=== PATIENT | female | born 2000 | race Caucasian/White ===

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

== ENCOUNTER → 2022-05-09 11:35 | Outpatient (BNVA) | payer OTHER, SELFPAY | PROVIDERS: Visit Provider Internal Medicine | DX: T15.91XA Foreign body on external eye, part unspecified, right eye, initial encounter (principal); T15.92XA Foreign body on external eye, part unspecified, left eye, initial encounter | CPT/HCPCS: 92002; 99202 ==

== ENCOUNTER 2022-05-31 20:14 | Emergency (ER) | payer OTHER, SELFPAY ==
[2022-05-31 20:22] VITALS: BP 122/79; PULSE 86; RESP 16; TEMP 36.2; O2SAT 95; BMI 36.8
--- NOTE | 2022-05-31 20:48 | ED_ITS ---
HPI - Psych General Chief Complaint: Psychiatric Symptoms Stated Complaint: crisis Time Seen by Provider: 05/31/22 20:34 Source: patient Mode of arrival: ambulatory Limitations: no limitations History of Present Illness HPI Narrative: 21 yo female ppmhx of adhd, anxiety, depression, bipolar disorder, autism spectrum disorder presents to the emergency department today with SI with a plan. Patient took 16 sleep well gummies at 1530 today. 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 Patient has been suicidal in the past, last year which resulted in outpatient therapy. Currently followed by a psychiatrist and counselor, is on multiple psychiatric medications. Denies A/V/T hallucinations. Denies tobacco, drugs, or alcohol at the time. Lives with her mother in a home. Has never been hospitalized before for psychiatric complaints. Denies fevers, chills, headache, visual changes, weakness, dizziness, nausea, vomiting, diarrhea, numbness or tingling of extremities. Denies HI at this time. Related Data Home Medications Medication Instructions Recorded Confirmed cariprazine 1.5 mg capsule 1 cap PO DAILY 05/31/22 05/31/22 (Vraylar) dextroamphetamine-amphetamine ER 1 cap PO QAM 05/31/22 05/31/22 15 mg 24hr capsule,extend release (Adderall XR) norethindrone 0.5 mg-ethinyl 1 tab PO DAILY 05/31/22 05/31/22 estradiol 35 mcg tablet (Nortrel) norethindrone 0.5 mg-ethinyl 1 tab PO DAILY 05/31/22 05/31/22 estradiol 35 mcg tablet (Nortrel) omeprazole 20 mg capsule,delayed 1 cap PO DAILY 05/31/22 05/31/22 release Allergies Allergy/AdvReac Type Severity Reaction Status Date / Time No Known Allergies Allergy Verified 10/23/20 19:55 Review of Systems Review of Systems: Constitutional : No Weight loss, No Fever, No Chills, No Fatigue, No Malaise ENT/Mouth : No sore throat, No Rhinorrhea Eyes: No Eye Pain, No Swelling, No Redness Cardiovascular : No Chest Pain, No SOB, No Dyspnea on Exertion, No Orthopnea, No Edema, No Palpitations Respiratory : No Cough, No Sputum, No Wheezing Gastrointestinal : No Nausea, No Vomiting, No Diarrhea, No Constipation, No abdominal Pain, No Hematochezia, No Melena Genitourinary : No Dysuria, No Urinary Frequency, No Hematuria, Musculoskeletal : No joint pain, No Myalgias, No Joint Swelling Skin : No Skin Lesions, No rash Neuro : No Weakness, No Numbness, No Dizziness, No Headache Psych : + Anxiety/Panic, + Depression, +SI, -HI, -A/T/V hallucinations All other systems reviewed and are negative PMFSH Past Medical History Attestation statement: The following information was validated with the patient. Source: old records reviewed and nursing notes reviewed Medical History (Updated 05/31/22 @ 21:45 by LEIA Lopez) ADHD Anxiety Autism Bipolar disorder Depression Social History Social History Alcohol intake: never Advance Directives: No Advance Directives Information Provided: No Physical Exam Vital Signs: Vital Signs: Last Vital Signs Temp 97.1 F 05/31/22 20:22 Pulse 86 05/31/22 20:22 Resp 16 05/31/22 20:22 BP 122/79 05/31/22 20:22 Pulse Ox 95 05/31/22 20:22 O2 Del Method 05/31/22 20:22 BMI result Body Mass Index 36.8 vss Appearance: Alert.? Oriented X3.? No acute distress.? Head: Normocephalic, atraumatic, no step-offs or deformities Eyes: Pupils equal, round and reactive to light.? CVS: Normal heart rate and rhythm.? Pulses normal.? Respiratory: No respiratory distress.? Breath sounds normal.? Abdomen: Soft and nontender.? Skin: Skin warm and dry.? Normal skin color.? Normal skin turgor.? Extremities: No lower extremity edema.? No calf ttp. 5/5 strength to bilateral upper and lower extremities Back: No midline tenderness, no C-spine tenderness, full range of motion, no CVA tenderness bilaterally Neuro: Oriented X 3.? No motor deficit.? No sensory deficit. CN 2-12 intact Course Reevaluation(s) Reevaluation #1: CBC appears to be within normal limits. Chemistry no acute electrolyte abnormalities requiring intervention. Toxicology positive for amphetamines, taking aderall as rx. Salicylates acetaminophen negative. Flu/COVID/RSV negative. Ethanol pending. At this time patient will be placed into observation to allow more time to be placed in inpatient psychiatric facility. Patient was evaluated in the community by [facility]. At time observation was started patient patient common cooperative no acute distress stable vitals will continue to monitor Time: 21:44 Medical Decision Making Medical Decision Making MDM Narrative: 2048 21 yo female presents to the emergency dept. with SI with a plan, took 16 sleep well gummies at 1530 today. No medical complaints at this time. Vital signs stable. PE benign. Plan is medical clearance and then psychiatric evaluation. Critical Care Time Critical Care Time Critical Care Time: No Discharge Plan Discharge Clinical Impression: Suicidal ideation, Depression Patient Disposition: Still a Patient Prescriptions: No Action omeprazole 20 mg capsule,delayed release(DR/EC) 1 cap PO DAILY Nortrel 0.5/35 (28) 0.5-35 mg-mcg tablet 1 tab PO DAILY Nortrel 0.5/35 (28) 0.5-35 mg-mcg tablet 1 tab PO DAILY dextroamphetamine-amphetamine [Adderall XR] 15 mg capsule,extended release 24hr 1 cap PO QAM Vraylar 1.5 mg capsule 1 cap PO DAILY
[2022-05-31 20:58] LABS: MANUAL DIFF FLAG NO
[2022-05-31 20:59] LABS: Basophils Absolute Auto 0.1 X10*3/uL (0.0-0.2); Basophils Percent Auto 0.7 % (0-2); Eosinophils Absolute Auto 0.3 X10*3/uL (0.0-0.4); Eosinophils Percent Auto 2.7 % (0-4); Hematocrit 40.5 % (37.0-47.0); Hemoglobin 12.9 g/dl (12.0-16.0); Imm Gran Abs Auto 0.03 X10*3/uL (0.00-0.03); Imm Gran Pct Auto 0.3 % (0.0-0.4); Lymphocytes Absolute Auto 2.4 X10*3/uL (1.2-4.9); Lymphocytes Percent Auto 23.3 % (20-40); Mean Corpuscular HGB Conc 31.9 g/dl (31.0-35.0); Mean Corpuscular Hemoglobin 27.6 pg (27.0-33.0); Mean Corpuscular Volume 86.5 fL (80.0-98.0); Mean Platelet Volume 10.5 fL (9.4-12.3); Monocytes Absolute Auto 0.8 X10*3/uL (0.1-1.2); Monocytes Percent Auto 7.7 % (2-11); Neutrophils Absolute Auto 6.8 x10*3/uL (2.0-8.3); Neutrophils Percent Auto 65.3 % (45-73); Platelet Count 359 X10*3/uL (160-400); Red Blood Count 4.68 X10*6/uL (4.20-5.50); Red Cell Distribution Width 13.2 % (11.0-16.0); White Blood Count 10.4 X10*3/uL (4.8-10.8)
[2022-05-31 21:01] LABS: Amphetamine Screen Urine POSITIVE (Not Detect); Barbiturates, Urine Not Detected (Not Detect); Benzodiazepines Screen Urine Not Detected (Not Detect); Cannabinoid Screen Urine Not Detected (Not Detect); Cocaine Screen Urine Not Detected (Not Detect); Fentanyl, urine Not Detected (Not Detect); Opiate Screen Urine Not Detected (Not Detect); Phencyclidine Screen Urine Not Detected (Not Detect)
[2022-05-31 21:18] LABS: Acetaminophen LAB < 1 mcg/mL (<30); Salicylate < 5.0 mg/dL (15-30)
[2022-05-31 21:19] LABS: Alanine Aminotransferase 20 U/L (0-31); Albumin Level 3.7 g/dL (3.5-5.0); Alkaline Phosphatase 97 U/L (39-117); Anion Gap 15 (12-20); Aspartate Amino Transferase 15 U/L (5-31); Blood Urea Nitrogen 13 mg/dL (9-16); Calcium 9.3 mg/dL (8.4-10.2); Carbon Dioxide 23 mmol/L (22-29); Chloride 105 mmol/L (96-108); Creatinine Clr Calc Pharmacy 143.3; Estimated Glomerular Filt Rate > 60; Glucose Random 94 mg/dL (60-115); Potassium 4.4 mmol/L (3.3-5.1); Sodium 139 mmol/L (135-145)
[2022-05-31 21:27] LABS: Influenza A PCR NEGATIVE (Negative); Influenza B PCR NEGATIVE (Negative); Resp Syncy Virus RNA Qual PCR NEGATIVE (Negative); SARS COV2 PCR INHOUSE NEGATIVE (Negative)
[2022-05-31 22:09] LABS: Ethanol < 10 mg/dL
[2022-05-31 23:16] VITALS: BP 125/72; PULSE 70; RESP 17; TEMP 36.7; O2SAT 100
[2022-05-31 23:18] LABS: Bilirubin Total 0.2 mg/dL (0.0-1.0)
[2022-06-01] MEDS: diphenhydrAMINE HCL 25 MG CAPSULE 50 MG PO (02:04)
--- NOTE | 2022-06-01 06:03 | PC.NURSE ---
Patient slept through the night, no distress observed/reported, med rec completed/pending provider's approval, patient was assessed by [facility] in the community with disposition section 12 inpatient bed search, VSS, will continue to monitor.
[2022-06-01 07:50] VITALS: BP 123/78; PULSE 89; RESP 18; TEMP 36.8; O2SAT 98
[2022-06-01] MEDS: Dextroamphetamine/Amphetamine XR 5 MG CAP.ER.24H 15 MG PO (10:05)
[2022-06-01] MEDS: FLUoxetine HCl 20 MG CAPSULE PO (10:05)
--- NOTE | 2022-06-01 11:01 | PC.NURSE ---
Still awaiting Naz from Pharmacy. No med at this time.
--- NOTE | 2022-06-01 12:16 | PC.NURSE ---
Per pt: when mom calls for status update, report that pt is sleeping and will call back when awake. Pt had distressing phone call with mother at approximately 12pm. Per pt she keeps yelling at me about filing unemployment and calling my boyfriend first. She says I need my phone. rules of pod and phone policy educated to patient. Pt verbalized understanding. Due to distressing nature of phone call, emotional support and non-pharmacological management of anxiety offered.
[2022-06-01] MEDS: Ibuprofen 600 MG TABLET PO (13:37)
[2022-06-01 14:00] VITALS: RESP 16
--- NOTE | 2022-06-01 15:17 | PC.NURSE ---
Per N: Okay to d/c to follow up with outpatient respite services and is safe to wait in Waiting room.
== END 2022-06-01 15:42 | disposition home or self-care (01) ==
PROVIDERS: Physician Assistant; Emergency Provider Emergency Medicine Emergency Medical Services
DX: R45.851 Suicidal ideations (principal); F31.9 Bipolar disorder, unspecified; F41.9 Anxiety disorder, unspecified; F84.0 Autistic disorder; Z79.899 Other long term (current) drug therapy; Z20.822 Contact with and (suspected) exposure to COVID-19
CPT/HCPCS: 0241U; 36415; 80053; 80143; 80179; 80307; 82077; 85025; 99285

== ENCOUNTER 2023-09-23 10:04 | Inpatient (IN) | payer OTHER, SELFPAY ==
--- NOTE | 2023-09-23 10:17 | ED.GENADULT ---
HPI - General Adult General Chief complaint: Psychiatric Symptoms Stated complaint: CRISIS EVAL,THOUGHTS TO DRINK LYSOL PER EMS Time Seen by Provider: 09/23/23 10:16 Source: patient and EMS Mode of arrival: EMS Limitations: no limitations History of Present Illness HPI narrative: Patient is a 23 year old assigned female at with a history of ADHD, anxiety, bipolar disorder, depression, and autism presenting to the emergency department today with suicidal ideation. Patient states that she has felt suicidal lately. Patient denies any dizziness, lightheadedness, abdominal pain, nausea, vomiting, fever, chills, blurry vision, double vision, loss of vision, chest pain, difficulty breathing, shortness of breath, back pain, night sweats, pain with urination, increased urinary frequency, increased urinary urgency, blood in her urine or stool, syncope or a near syncopal episode, recent trauma or falls, bowel incontinence, bladder incontinence, bowel retention, bladder retention, or any other complaints at this time. Relieving factors: none Exacerbating factors: none Associated symptoms: denies other symptoms Treatments prior to arrival: none Related Data Home Medications Medication Instructions Recorded Confirmed escitalopram oxalate 10 mg tablet 5 mg PO DAILY 09/23/23 09/23/23 hydroxyzine HCl 25 mg tablet 25 mg PO BEDTIME PRN anxiety 09/23/23 09/23/23 Allergies Allergy/AdvReac Type Severity Reaction Status Date / Time No Known Allergies Allergy Verified 10/23/20 19:55 Review of Systems Constitutional: Constitutional: Reports no additional constitutional complaints, Denies chills, Denies fever(s) and Denies night sweats Eyes: Eyes: Reports no additional eye complaints, Denies blurry vision, Denies change in vision, Denies diplopia, Denies eye discharge, Denies loss of vision and Denies eye pain ENT: Denies dizziness Cardiovascular: Cardiovascular: Reports no additional cardiovascular complaints, Denies chest pain, Denies lightheadedness, Denies Loss of Consciousness and Denies dyspnea Respiratory: Respiratory: Reports no additional respiratory complaints and Denies dyspnea Gastrointestinal: Gastrointestinal: Reports no additional gastrointestinal complaints, Denies abdominal pain, Denies melena, Denies hematochezia, Denies change in bowel habits and Denies change in stool character Genitourinary: Genitourinary: Denies hematuria, Denies urinary frequency, Denies dysuria, Denies urinary incontinence, Denies urinary hesitancy and Denies urinary urgency Musculoskeletal: Musculoskeletal: Reports no additional musculoskeletal complaints, Denies numbness and Denies tingling Neurologic: Denies dizziness, Denies loss of vision, Denies numbness and Denies tingling Psychiatric: Psychiatric: Denies homicidal ideation and Reports suicidal ideation Endocrine: Endocrine: Reports no additional endocrine complaints Hematologic/Lymphatic: Hematologic/Lymphatic: Reports no additional hematologic/lymphatic complaints Allergic/Immunologic: Allergic/Immunologic: Reports no additional allergic/immunologic complaints [facility] Past Medical History Attestation statement: The following information was validated with the patient. Source: old records reviewed and nursing notes reviewed Medical History Autism Depression Bipolar disorder Anxiety ADHD Social History Social History Alcohol intake: unknown Smoked in Last 30 Days: No Use of substances other than those prescribed or required for medical reasons: No Advance Directives: No Physical Exam ED Vital Signs: Vital Signs - 24 hr 09/23/23 10:18 09/23/23 10:26 09/23/23 14:20 Temperature 98.1 F 98.1 F 97.9 F Pulse Rate 74 78 84 Respiratory Rate 18 20 16 Blood Pressure 108/57 L 108/57 L 130/78 Pulse Oximetry 98 98 97 Oxygen Delivery Method Room Air Room Air Room Air BMI result Body Mass Index 30.9 Const General: cooperative, no acute distress, alert and awake Nutritional Appearance: well nourished Orientation/consciousness: patient oriented x3 Limitations: no limitations [facility] Head: Yes normal to inspection and Yes atraumatic Ears: hearing grossly normal bilaterally and external ears normal General nose exam: Normal external nose present, no nasal discharge noted and no epistaxis Face and sinus: Yes normal facial exam, No abrasion and No laceration Mouth: Normal oral and palatal mucosa present, no drooling and no muffled voice Eyes General: appearance normal, both eyes and all related structures Periorbital: periorbital findings normal Eyelids: Yes eyelids normal Conjunctivae: conjunctivae normal Pupils: Equal, round and reactive pupils present EOM: EOMs intact bilaterally Neck Neck: Yes normal visual inspection, Yes full ROM and Yes no lymphadenopathy Chest Chest palpation & inspection: normal inspection of the chest Resp Effort & Inspection: normal respiratory effort and able to speak in complete sentences GI Inspection: Yes normal to inspection Neuro General: patient oriented x3 and moves all extremities Cranial nerves: Yes Equal, round and reactive pupils present Cognition (Neuro): normal cognition Motor exam (neuro): 5/5 motor strength present throughout Sensory Exam: Normal double simultaneous stimulation for sensation Coordination: [id number] test normal Extrem General: Yes normal to inspection, Yes full ROM and Yes capillary refill normal Psych Appearance: grossly normal Mental Status: mental status grossly normal Affect: Sad affect present Attitude: Guarded attititude/behavior present Thought content: Suicidality present Medical Decision Making Medical Decision Making MDM Narrative: Patient is a 23 year old assigned female at with a history of ADHD, anxiety, bipolar disorder, depression, and autism presenting to the emergency department today with suicidal ideation. Patient's physical exam was as noted in the physical exam portion of this note. Patient's blood work was unremarkable. Patient's urine showed no acute process. I explained my physical exam findings as well as all test results to the patient. I answered all questions asked by the patient. Patient's disposition pending CARE team evaluation. Differential Diagnosis Differential Diagnoses: The differential diagnosis associated with the presentation includes Suicidal ideation Depression Admission/Observation Consideration of admission/observation: Escalation of care including admission/observation considered Patient's disposition pending CARE team evaluation. Lab Data [facility] Lab Attestation statement: I reviewed the patient's lab results. My interpretation of these results are in the MDM Rationale portion of this note. 09/23/23 10:43 09/23/23 10:43 Labs: Lab Results 09/23/23 09/23/23 Range/Units 10:42 10:43 WBC 8.1 (4.8-10.8) X10*3/uL RBC 4.73 (4.20-5.50) X10*6/uL Hgb 13.8 (12.0-16.0) g/dl Hct 41.6 (37.0-47.0) % MCV 87.9 (80.0-98.0) fL MCH 29.2 (27.0-33.0) pg MCHC 33.2 (31.0-35.0) g/dl RDW 13.0 (11.0-16.0) % Plt Count 289 (160-400) X10*3/uL MPV 11.0 (9.4-12.3) fL Immature Gran % (Auto) 0.2 (0.0-0.4) % Neut % (Auto) 71.4 (45-73) % Lymph % (Auto) 20.7 (20-40) % [place] % (Auto) 6.8 (2-11) % Eos % (Auto) 0.2 (0-4) % Baso % (Auto) 0.7 (0-2) % Lymph # (Auto) 1.7 (1.2-4.9) X10*3/uL [place] # (Auto) 0.6 (0.1-1.2) X10*3/uL Eos # (Auto) 0.0 (0.0-0.4) X10*3/uL Baso # (Auto) 0.1 (0.0-0.2) X10*3/uL Abs Immat Gran (auto) 0.02 (0.00-0.03) X10*3/uL Absolute Neuts (auto) 5.8 (2.0-8.3) x10*3/uL Absolute Nucleated RBC 0.000 (0.0-0.012) X10*3/uL Nucleated RBC % (auto) 0.0 (0.0-0.2) /100WBC Sodium 141 (135-145) mmol/L Potassium 4.2 (3.3-5.1) mmol/L Chloride 107 (96-108) mmol/L Carbon Dioxide 26 (22-29) mmol/L Anion Gap 12 (12-20) BUN 15 (9-16) mg/dL Creatinine 0.75 (0.5-1.4) mg/dL Estim Creat Clear Calc 121.6 Estimated GFR > 60 Random Glucose 100 (60-115) mg/dL Calcium 9.8 (8.4-10.2) mg/dL Total Bilirubin 0.5 (0.0-1.0) mg/dL AST 14 (5-31) U/L ALT 13 (0-31) U/L Alkaline Phosphatase 101 (39-117) U/L Total Protein 7.7 (6.5-8.0) g/dL Albumin 4.2 (3.5-5.0) g/dL Urine Color Yellow Urine Appearance Clear Urine pH 5.5 (5.0-9.0) Ur Specific [place] 1.025 (1.005-1.025) Urine Protein Negative (Neg-Trace) mg/dL Urine Glucose (UA) Negative (Negative) mg/dL Urine Ketones 40 (Negative) mg/dL Urine Blood Negative (Negative) Urine Nitrite Negative (Negative) Ur Leukocyte Esterase Negative (Negative) Urine Test NEGATIVE (NEGATIVE) Salicylates < 5.0 L (15-30) mg/dL Urine Opiates Screen Not Detected (Not Detect) Urine Fentanyl Screen Not Detected (Not Detect) Acetaminophen < 3 (<30) mcg/mL Ur Barbiturates Screen Not Detected (Not Detect) Ur Phencyclidine Scrn Not Detected (Not Detect) Ur Amphetamines Screen Not Detected (Not Detect) U Benzodiazepines Scrn Not Detected (Not Detect) Urine Cocaine Screen Not Detected (Not Detect) U Marijuana (THC) Screen Not Detected (Not Detect) Ethyl Alcohol < 10 mg/dL COVID-19 (LILA) Negative (Negative) COVID-19 Clin Com See Note Independent Historian Clinical information obtained from an independent historian. History obtained from or confirmed by: EMS (EMS provided additional history and confirmed the history provided by the patient.) Discharge Plan Discharge Clinical Impression: Suicidal ideation Patient Disposition: Still a Patient Prescriptions: No Action hydroxyzine HCl 25 mg tablet 25 mg PO BEDTIME PRN (Reason: anxiety) escitalopram oxalate 10 mg tablet 5 mg PO DAILY Interventions: Gray-Suicide Risk Severity Scale Last Done: 09/23/23 10:23
[2023-09-23 10:18] VITALS: BP 108/57; BP 112/78; PULSE 73; PULSE 74; RESP 18; TEMP 36.7; O2SAT 98; BMI 30.9
[2023-09-23 10:26] VITALS: BP 108/57; PULSE 78; RESP 20; TEMP 36.7; O2SAT 98
[2023-09-23 11:00] LABS: MANUAL DIFF FLAG NO
[2023-09-23 11:01] LABS: Basophils Absolute Auto 0.1 X10*3/uL (0.0-0.2); Basophils Percent Auto 0.7 % (0-2); Eosinophils Percent Auto 0.2 % (0-4); Hematocrit 41.6 % (37.0-47.0); Hemoglobin 13.8 g/dl (12.0-16.0); Imm Gran Abs Auto 0.02 X10*3/uL (0.00-0.03); Imm Gran Pct Auto 0.2 % (0.0-0.4); Lymphocytes Absolute Auto 1.7 X10*3/uL (1.2-4.9); Lymphocytes Percent Auto 20.7 % (20-40); Mean Corpuscular HGB Conc 33.2 g/dl (31.0-35.0); Mean Corpuscular Hemoglobin 29.2 pg (27.0-33.0); Mean Corpuscular Volume 87.9 fL (80.0-98.0); Monocytes Absolute Auto 0.6 X10*3/uL (0.1-1.2); Monocytes Percent Auto 6.8 % (2-11); Neutrophils Absolute Auto 5.8 x10*3/uL (2.0-8.3); Neutrophils Percent Auto 71.4 % (45-73); Platelet Count 289 X10*3/uL (160-400); Red Blood Count 4.73 X10*6/uL (4.20-5.50); White Blood Count 8.1 X10*3/uL (4.8-10.8)
[2023-09-23 11:10] LABS: Appearance Urine Clear; Color Urine Yellow; Glucose Urine UA Negative (Negative); Leukocyte Esterase Urine Negative (Negative); Nitrite Urine Negative (Negative); PH 5.5 (5.0-9.0); Specific Gravity - Urine 1.025 (1.005-1.025); Urine Blood Negative (Negative); Urine Ketones 40 mg/dL (Negative); Urine Protein Negative (Neg-Trace)
[2023-09-23 11:12] LABS: Amphetamine Screen Urine Not Detected (Not Detect); Barbiturates, Urine Not Detected (Not Detect); Benzodiazepines Screen Urine Not Detected (Not Detect); Cannabinoid Screen Urine Not Detected (Not Detect); Cocaine Screen Urine Not Detected (Not Detect); Fentanyl, urine Not Detected (Not Detect); Opiate Screen Urine Not Detected (Not Detect); Phencyclidine Screen Urine Not Detected (Not Detect); UPreg QC Valid YES; Urine Pregnancy NEGATIVE (NEGATIVE)
[2023-09-23 11:22] LABS: COVID-19 Test Negative (Negative); IDNOW Serial# 08D9AD1C
[2023-09-23 11:26] LABS: Acetaminophen LAB < 3 mcg/mL (<30); Salicylate < 5.0 mg/dL (15-30)
[2023-09-23 11:26] LABS: Alanine Aminotransferase 13 U/L (0-31); Albumin Level 4.2 g/dL (3.5-5.0); Alkaline Phosphatase 101 U/L (39-117); Anion Gap 12 (12-20); Aspartate Amino Transferase 14 U/L (5-31); Bilirubin Total 0.5 mg/dL (0.0-1.0); Blood Urea Nitrogen 15 mg/dL (9-16); Calcium 9.8 mg/dL (8.4-10.2); Carbon Dioxide 26 mmol/L (22-29); Chloride 107 mmol/L (96-108); Creatinine Clr Calc Pharmacy 121.6; Estimated Glomerular Filt Rate > 60; Ethanol < 10 mg/dL; Glucose Random 100 mg/dL (60-115); Potassium 4.2 mmol/L (3.3-5.1); Sodium 141 mmol/L (135-145); Total Protein 7.7 g/dL (6.5-8.0)
[2023-09-23 14:20] VITALS: BP 130/78; PULSE 84; RESP 16; TEMP 36.6; O2SAT 97
[2023-09-23 16:24] VITALS: BP 107/60; PULSE 67; RESP 16; TEMP 37.2; O2SAT 100; BMI 32.9
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
[2023-09-23 20:30] VITALS: BP 115/60; PULSE 60; RESP 16; TEMP 36.8; O2SAT 100
[2023-09-24] MEDS: diphenhydrAMINE HCL 25 MG CAPSULE 50 MG PO (02:04)
[2023-09-24 06:00] VITALS: BP 112/53; PULSE 82; RESP 14; TEMP 36.9; O2SAT 99
[2023-09-24 07:00] VITALS: BMI 32.8
[2023-09-24] MEDS: Escitalopram Oxalate 5 MG TABLET PO (08:21)
[2023-09-24 09:06] LABS: Estimated Average Glucose 100 mg/dL; Hemoglobin A1c % 5.1 % (<6.0)
[2023-09-24 09:23] LABS: Cholesterol 152 mg/dL (<200); HDL Cholesterol 53 mg/dL (>40); LDL Cholesterol Calculated 87 mg/dL (<100); Triglycerides 62 mg/dL (<150)
[2023-09-24 09:38] LABS: Free T4 (Free Thyroxine) 0.87 ng/dL (0.71-1.85); Thyroid Stimulating Hormone 1.36 uIU/mL (0.32-4.0)
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
[2023-09-24 09:51] LABS: Folate 7.5 ng/mL (> or = 4.0); Vitamin B12 1023 pg/mL (200-900)
[2023-09-24 20:35] VITALS: BP 123/59; PULSE 60; RESP 15; TEMP 36.9; O2SAT 99
[2023-09-24] MEDS: risperiDONE 1 MG TABLET PO (21:05)
[2023-09-25 06:00] VITALS: BP 107/72; PULSE 74; RESP 14; TEMP 36.7; O2SAT 99
[2023-09-25] MEDS: risperiDONE 0.5 MG TABLET PO (11:48)
[2023-09-25] MEDS: Escitalopram Oxalate 5 MG TABLET PO (11:48)
--- NOTE | 2023-09-25 15:25 | HO.PSYCHPN ---
Subjective Subjective Date of Service: 09/25/23 Reason For Visit: SI Interim History: calm, cooperative. remains slowed, perhaps less so than yesterday. a bit more spontaneous and faster to respond. no incidents of asking MD to repeat questions today. encouraged to take medications, which she did last night but refused this morning. per staff, high dep/anx. taking meds. attending groups. denies SI/HI/AVH. later denied dep/anx. Mental Status Exam Mental Status Exam Narrative: calm, cooperative, disheveled. no PMA/PMR. speech sparse, appears to be on the cusp of speaking repeatedly and then halts herself. nml loudness, decr rate. thoughts linear when able to answer quickly. affect constricted, hypo-intense, non-labile. mood anxious. no SI/SIBI/HI/AVH expressed. Diagnostics Vital Signs (24Hr): Vital Signs - 24 hr 09/24/23 20:35 09/25/23 06:00 Temperature 98.5 F 98.1 F Pulse Rate 60 74 Respiratory Rate 15 14 Blood Pressure 123/59 L 107/72 Pulse Oximetry 99 99 Oxygen Delivery Method Room Air Room Air BMI result Body Mass Index 32.8 Labs 09/23/23 10:43 09/23/23 10:43 Labs: Laboratory Results - last 48 hr 09/24/23 08:28 Estimat Average Glucose 100 Hemoglobin A1c % 5.1 Triglycerides 62 Cholesterol 152 LDL Cholesterol, Calc 87 HDL Cholesterol 53 Vitamin B12 1023 H Folate 7.5 TSH 1.36 Free T4 0.87 Medications Medications Current Medications Acetaminophen (Acetaminophen 325 Mg Tablet) 650 mg PO Q6H PRN PRN Reason: Headache/Pain Mild Scale (1-3) Al Hydroxide/Mg Hydroxide (Magnesium Hydrox/Alum Hydrox 30 Ml Oral.Susp) 30 ml PO Q6H PRN PRN Reason: Heartburn/Nausea Escitalopram Oxalate (Escitalopram Oxalate 5 Mg Tablet) 5 mg PO DAILY [facility] Last Admin: 09/25/23 11:48 Dose: 5 mg Hydroxyzine HCl (Hydroxyzine Hcl 25 Mg Tablet) 25 mg PO BEDTIME PRN PRN Reason: anxiety Hydroxyzine HCl (Hydroxyzine Hcl 25 Mg Tablet) 25 mg PO Q6H PRN PRN Reason: Anxiety Magnesium Hydroxide (Milk Of Magnesia 30 Ml Oral.Susp) 30 ml PO DAILY PRN PRN Reason: Constipation Nicotine Polacrilex (Nicotine Polacrilex 2 Mg Gum) 2 mg BUCCAL Q2H PRN PRN Reason: Nicotine Cravings Risperidone (Risperidone 0.5 Mg Tablet) 0.5 mg PO DAILY [facility] Last Admin: 09/25/23 11:48 Dose: 0.5 mg Risperidone (Risperidone 1 Mg Tablet) 1 mg PO BEDTIME [facility] Last Admin: 09/24/23 21:05 Dose: 1 mg Trazodone HCl (Trazodone Hcl 50 Mg Tablet) 50 mg PO BEDTIME MRX1 PRN PRN Reason: Insomnia Allergies Allergies Allergy/AdvReac Type Severity Reaction Status Date / Time goat milk Allergy Hives Uncoded 09/23/23 15:53 Assessment & Plan Assessment & Plan (1) Thought disorder: Status: Acute Code(s): R41.89 - Other symptoms and signs involving cognitive functions and awareness (2) Autism: Status: Acute Code(s): F84.0 - Autistic disorder Plan 09/23: start risperidone 0.5/1 in attempt to slow and organize thoughts. unclear if barbara or psychosis, leaning toward psychosis. 4/5: partial medication compliance. appears moderately improved today after having had 1 mg risperidone last night. continue current mgmt, encourage medication compliance. Reason for continued inpatient stay Substantial Risk for: harm to self, inability to function and rapid decompensation Time Spent With Patient Time: Total time managing care of this patient today __35__ minutes.
--- NOTE | 2023-09-25 22:25 | PC.NURSE ---
not accepting HS medications at this time. sat with patient for 1/2 hour reviewing medications, talking about use, having patient review packaging. thought blocking and resistive. not agitated but apprehensive.
[2023-09-25 22:27] VITALS: RESP 16
[2023-09-25] MEDS: risperiDONE 1 MG TABLET PO (22:40)
[2023-09-25 22:50] VITALS: BP 120/62; PULSE 78; RESP 16; TEMP 36.6; O2SAT 96
[2023-09-26 07:25] VITALS: BP 130/75; PULSE 59; RESP 16; TEMP 37.3; O2SAT 96
[2023-09-26] MEDS: Escitalopram Oxalate 5 MG TABLET PO (08:41)
[2023-09-26] MEDS: Ondansetron ODT 4 MG TAB.RAPDIS TRANSLINGU (11:05)
--- NOTE | 2023-09-26 11:32 | HO.PSYCHPN ---
Subjective Subjective Date of Service: 09/26/23 Reason For Visit: SI Subjective Notes: Conditional Voluntary Interim History: met with patient. Discussed with Nursing. Very reluctant to engage with junior technical writer. Did appear either internally preoccupied or thought blocking. Withdrawn. Reported wanting to wait after the weekend to speak with her main team. Also made contradictory statement, stating she did not like working with her primary team, but was unsure what she wanted to speak with junior technical writer about and if she felt comfortable doing this. Medication Compliance: Yes Side effects from medications: No Attending Groups: No Review of Systems Acute medical concerns: No Review of Systems Review of Systems Yes Unobtainable due to mental status Mental Status Exam Mental Status Exam Narrative: calm, cooperative, disheveled. no PMA/PMR. speech sparse, appears to be on the cusp of speaking repeatedly and then halts herself. nml loudness, decr rate. thoughts linear when able to answer quickly. affect constricted, hypo-intense, non-labile. mood anxious. no SI/SIBI/HI/AVH expressed. Diagnostics Vital Signs (24Hr): Vital Signs - 24 hr 09/25/23 22:27 09/25/23 22:50 09/26/23 07:25 Temperature 97.8 F 99.1 F Pulse Rate 78 59 Respiratory Rate 16 16 16 Blood Pressure 120/62 130/75 Pulse Oximetry 96 96 Oxygen Delivery Method Room Air Room Air BMI result Body Mass Index 32.8 Labs 09/23/23 10:43 09/23/23 10:43 Medications Medications Current Medications Acetaminophen (Acetaminophen 325 Mg Tablet) 650 mg PO Q6H PRN PRN Reason: Headache/Pain Mild Scale (1-3) Al Hydroxide/Mg Hydroxide (Magnesium Hydrox/Alum Hydrox 30 Ml Oral.Susp) 30 ml PO Q6H PRN PRN Reason: Heartburn/Nausea Escitalopram Oxalate (Escitalopram Oxalate 5 Mg Tablet) 5 mg PO DAILY [facility] Last Admin: 09/26/23 08:41 Dose: 5 mg Hydroxyzine HCl (Hydroxyzine Hcl 25 Mg Tablet) 25 mg PO BEDTIME PRN PRN Reason: anxiety Hydroxyzine HCl (Hydroxyzine Hcl 25 Mg Tablet) 25 mg PO Q6H PRN PRN Reason: Anxiety Magnesium Hydroxide (Milk Of Magnesia 30 Ml Oral.Susp) 30 ml PO DAILY PRN PRN Reason: Constipation Nicotine Polacrilex (Nicotine Polacrilex 2 Mg Gum) 2 mg BUCCAL Q2H PRN PRN Reason: Nicotine Cravings Ondansetron HCl (Ondansetron Odt 4 Mg Tab.Rapdis) 4 mg TRANSLINGU Q4H PRN PRN Reason: Nausea Last Admin: 09/26/23 11:05 Dose: 4 mg Risperidone (Risperidone 0.5 Mg Tablet) 0.5 mg PO DAILY [facility] Last Admin: 09/26/23 08:42 Dose: Not Given Risperidone (Risperidone 1 Mg Tablet) 1 mg PO BEDTIME [facility] Last Admin: 09/25/23 22:40 Dose: 1 mg Trazodone HCl (Trazodone Hcl 50 Mg Tablet) 50 mg PO BEDTIME MRX1 PRN PRN Reason: Insomnia Allergies Allergies Allergy/AdvReac Type Severity Reaction Status Date / Time goat milk Allergy Hives Uncoded 09/23/23 15:53 Assessment & Plan Assessment & Plan (1) Thought disorder: Status: Acute Code(s): R41.89 - Other symptoms and signs involving cognitive functions and awareness (2) Autism: Status: Acute Code(s): F84.0 - Autistic disorder Plan 4: start risperidone 0.5/1 in attempt to slow and organize thoughts. unclear if barbara or psychosis, leaning toward psychosis. /5: partial medication compliance. appears moderately improved today after having had 1 mg risperidone last night. continue current mgmt, encourage medication compliance. 4/6: no changes Reason for continued inpatient stay Substantial Risk for: inability to function Time Spent With Patient Time: Total time managing care of this patient today ____ minutes.
[2023-09-26 20:00] VITALS: RESP 18
[2023-09-27 08:00] VITALS: BP 116/60; PULSE 90; RESP 16; TEMP 37.1; O2SAT 96
--- NOTE | 2023-09-27 12:07 | HO.PSYCHPN ---
Subjective Subjective Date of Service: 09/27/23 Reason For Visit: SI Subjective Notes: Stark Warning and 3 Day Interim History: Met with patient. Discussed with Nursing. Signed a Three day notice. Stark warning discussed. Patient states that she now wants to be discharged and does not need psychiatric services, medications or care anymore and feels that she is able to advocate for herself and therefore wants discharge. Has been declining medications. Remains internally preoccupied or thought blocking. Withdrawn. Medication Compliance: No Side effects from medications: No Attending Groups: Intermittent Review of Systems Acute medical concerns: No Review of Systems Review of Systems Nothing acute Mental Status Exam Mental Status Exam Narrative: calm, cooperative, disheveled. no PMA/PMR. speech increased in volume and organization. nml loudness, decr rate. thoughts linear when able to answer quickly. affect constricted, hypo-intense, non-labile. mood anxious. no SI/SIBI/HI/AVH expressed. Diagnostics Vital Signs (24Hr): Vital Signs - 24 hr 09/26/23 20:00 09/27/23 08:00 Temperature 98.7 F Pulse Rate 90 Respiratory Rate 18 16 Blood Pressure 116/60 Pulse Oximetry 96 Oxygen Delivery Method Room Air BMI result Body Mass Index 32.8 Labs 09/23/23 10:43 09/23/23 10:43 Medications Medications Current Medications Acetaminophen (Acetaminophen 325 Mg Tablet) 650 mg PO Q6H PRN PRN Reason: Headache/Pain Mild Scale (1-3) Al Hydroxide/Mg Hydroxide (Magnesium Hydrox/Alum Hydrox 30 Ml Oral.Susp) 30 ml PO Q6H PRN PRN Reason: Heartburn/Nausea Escitalopram Oxalate (Escitalopram Oxalate 5 Mg Tablet) 5 mg PO DAILY MARIANNE Last Admin: 09/27/23 09:24 Dose: Not Given Hydroxyzine HCl (Hydroxyzine Hcl 25 Mg Tablet) 25 mg PO BEDTIME PRN PRN Reason: anxiety Hydroxyzine HCl (Hydroxyzine Hcl 25 Mg Tablet) 25 mg PO Q6H PRN PRN Reason: Anxiety Magnesium Hydroxide (Milk Of Magnesia 30 Ml Oral.Susp) 30 ml PO DAILY PRN PRN Reason: Constipation Nicotine Polacrilex (Nicotine Polacrilex 2 Mg Gum) 2 mg BUCCAL Q2H PRN PRN Reason: Nicotine Cravings Ondansetron HCl (Ondansetron Odt 4 Mg Tab.Rapdis) 4 mg TRANSLINGU Q4H PRN PRN Reason: Nausea Last Admin: 09/26/23 11:05 Dose: 4 mg Risperidone (Risperidone 0.5 Mg Tablet) 0.5 mg PO DAILY MARIANNE Last Admin: 09/27/23 09:23 Dose: Not Given Risperidone (Risperidone 1 Mg Tablet) 1 mg PO BEDTIME MARIANNE Last Admin: 09/26/23 20:50 Dose: Not Given Trazodone HCl (Trazodone Hcl 50 Mg Tablet) 50 mg PO BEDTIME MRX1 PRN PRN Reason: Insomnia Allergies Allergies Allergy/AdvReac Type Severity Reaction Status Date / Time goat milk Allergy Hives Uncoded 09/23/23 15:53 Assessment & Plan Assessment & Plan (1) Thought disorder: Status: Acute Code(s): R41.89 - Other symptoms and signs involving cognitive functions and awareness (2) Autism: Status: Acute Code(s): F84.0 - Autistic disorder Plan 09/23: start risperidone 0.5/1 in attempt to slow and organize thoughts. unclear if barbara or psychosis, leaning toward psychosis. 4/5: partial medication compliance. appears moderately improved today after having had 1 mg risperidone last night. continue current mgmt, encourage medication compliance. 4/6: no changes /7: no changes Reason for continued inpatient stay Substantial Risk for: inability to function Time Spent With Patient Time: Total time managing care of this patient today ____ minutes.
[2023-09-27 18:00] VITALS: BP 109/58; PULSE 74; RESP 20; TEMP 37.2; O2SAT 97
[2023-09-27] MEDS: risperiDONE 1 MG TABLET PO (21:43)
[2023-09-28 06:00] VITALS: BP 119/55; PULSE 91; RESP 14; TEMP 36.9; O2SAT 97
[2023-09-28 12:25] VITALS: BP 120/70; PULSE 87; RESP 16; TEMP 36.9; O2SAT 97
[2023-09-28] MEDS: risperiDONE 1 MG TABLET PO ×2 (12:36→20:17)
--- NOTE | 2023-09-28 16:27 | P.PNPSI_ITS ---
Subjective Subjective Date of Service: 09/28/23 Reason For Visit: SI Interim History: calm, cooperative. continues as similar to admission, perhaps slight improvement in response time. MD repeatedly encouraged patient to take medications as it appeared she had only taken them once over the weekend. per staff, 3-day up weds. refused meds all w/e aside from HS dose last night. repeatedly asking for belongings list. slept 7+ hours. Mental Status Exam Mental Status Exam Narrative: calm, cooperative, disheveled. no PMA/PMR. speech sparse, appears to be on the cusp of speaking repeatedly and then halts herself. nml loudness, decr rate. thoughts linear when able to answer quickly. affect constricted, hypo-intense, non-labile. mood anxious. no SI/SIBI/HI/AVH expressed. Diagnostics Vital Signs (24Hr): Vital Signs - 24 hr 09/27/23 18:00 09/28/23 06:00 09/28/23 12:25 Temperature 98.9 F 98.5 F 98.5 F Pulse Rate 74 91 87 Respiratory Rate 20 14 16 Blood Pressure 109/58 L 119/55 L 120/70 Pulse Oximetry 97 97 97 Oxygen Delivery Method Room Air Room Air Room Air BMI result Body Mass Index 32.8 Labs 09/23/23 10:43 09/23/23 10:43 Medications Medications Current Medications Acetaminophen (Acetaminophen 325 Mg Tablet) 650 mg PO Q6H PRN PRN Reason: Headache/Pain Mild Scale (1-3) Al Hydroxide/Mg Hydroxide (Magnesium Hydrox/Alum Hydrox 30 Ml Oral.Susp) 30 ml PO Q6H PRN PRN Reason: Heartburn/Nausea Escitalopram Oxalate (Escitalopram Oxalate 5 Mg Tablet) 5 mg PO DAILY ON LICENSE OF [facility] Last Admin: 09/28/23 09:18 Dose: Not Given Hydroxyzine HCl (Hydroxyzine Hcl 25 Mg Tablet) 25 mg PO BEDTIME PRN PRN Reason: anxiety Hydroxyzine HCl (Hydroxyzine Hcl 25 Mg Tablet) 25 mg PO Q6H PRN PRN Reason: Anxiety Magnesium Hydroxide (Milk Of Magnesia 30 Ml Oral.Susp) 30 ml PO DAILY PRN PRN Reason: Constipation Nicotine Polacrilex (Nicotine Polacrilex 2 Mg Gum) 2 mg BUCCAL Q2H PRN PRN Reason: Nicotine Cravings Ondansetron HCl (Ondansetron Odt 4 Mg Tab.Rapdis) 4 mg TRANSLINGU Q4H PRN PRN Reason: Nausea Last Admin: 09/26/23 11:05 Dose: 4 mg Risperidone (Risperidone 0.5 Mg Tablet) 0.5 mg PO DAILY ON LICENSE OF [facility] Last Admin: 09/28/23 09:18 Dose: Not Given Risperidone (Risperidone 1 Mg Tablet) 1 mg PO BEDTIME MARIANNE Last Admin: 09/27/23 21:43 Dose: 1 mg Trazodone HCl (Trazodone Hcl 50 Mg Tablet) 50 mg PO BEDTIME MRX1 PRN PRN Reason: Insomnia Allergies Allergies Allergy/AdvReac Type Severity Reaction Status Date / Time goat milk Allergy Hives Uncoded 09/23/23 15:53 Assessment & Plan Assessment & Plan (1) Thought disorder: Status: Acute Code(s): R41.89 - Other symptoms and signs involving cognitive functions and awareness (2) Autism: Status: Acute Code(s): F84.0 - Autistic disorder Plan 09/23: start risperidone 0.5/1 in attempt to slow and organize thoughts. unclear if barbara or psychosis, leaning toward psychosis. 4/5: partial medication compliance. appears moderately improved today after having had 1 mg risperidone last night. continue current mgmt, encourage medication compliance. /6: no changes 09/26: no changes 09/27: refused meds all w/e aside from last night. no change from thursday. MD strongly encouraged pt to take medication. 3-day notice up , planning for wed D/C. Reason for continued inpatient stay Substantial Risk for: inability to function and rapid decompensation Time Spent With Patient Time: Total time managing care of this patient today __35__ minutes.
[2023-09-28 19:30] VITALS: RESP 18
[2023-09-29 06:00] VITALS: BP 109/71; PULSE 86; RESP 16; TEMP 36.9; O2SAT 97
[2023-09-29] MEDS: Escitalopram Oxalate 5 MG TABLET PO (08:39)
[2023-09-29] MEDS: risperiDONE 0.5 MG TABLET PO (08:39)
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
[2023-09-29 20:00] VITALS: BP 127/76; PULSE 77; RESP 16; TEMP 36.9; O2SAT 99
[2023-09-29] MEDS: risperiDONE 1 MG TABLET PO (21:16)
[2023-09-30 06:00] VITALS: BP 113/62; PULSE 83; RESP 16; TEMP 36.9; O2SAT 98
[2023-09-30] MEDS: risperiDONE 0.5 MG TABLET PO (08:32)
[2023-09-30] MEDS: Escitalopram Oxalate 5 MG TABLET PO (08:32)
== END 2023-09-30 11:42 | disposition home or self-care (01) | DRG 757 ==
LOC: HO.ED 15:18 → HO.PADLT16 15:29
PROVIDERS: Physician Assistant Medical; Admitting Provider Psychiatry & Neurology Psychiatry; Emergency Provider Emergency Medicine; Visit Provider Psychiatry & Neurology Psychiatry
DX: F84.8 Other pervasive developmental disorders (principal); R45.851 Suicidal ideations; F41.9 Anxiety disorder, unspecified; F84.0 Autistic disorder; F90.9 Attention-deficit hyperactivity disorder, unspecified type; Z20.822 Contact with and (suspected) exposure to COVID-19; Z79.899 Other long term (current) drug therapy
CPT/HCPCS: 36415; 80053; 80061; 80143; 80179; 80307; 81003; 81025; 82607; 82746; 83036; 84439; 84443; 85025; 87635; 90686; 99285

== ENCOUNTER → 2023-09-23 14:59 | Outpatient (BNV) | payer OTHER, SELFPAY | PROVIDERS: Admitting Provider Psychiatry & Neurology Psychiatry; Emergency Provider Emergency Medicine; Visit Provider Psychiatry & Neurology Psychiatry | DX: F84.0 Autistic disorder (principal); R41.89 Other symptoms and signs involving cognitive functions and awareness | CPT/HCPCS: 90792; 99231; 99232; 99239 ==

== ENCOUNTER 2024-09-30 23:24 | Emergency (ER) | payer OTHER, SELFPAY ==
[2024-09-30 23:31] VITALS: BP 115/71; PULSE 91; RESP 16; TEMP 36.8; O2SAT 98; BMI 42.0
--- NOTE | 2024-10-01 00:04 | ED_ITS ---
HPI - Female Genitourinary General Chief complaint: Urogenital-Female Stated complaint: vaginal rash Time Seen by Provider: 09/30/24 23:43 Source: patient, RN notes reviewed and old records reviewed Mode of arrival: ambulatory Limitations: no limitations History of Present Illness ED Provider: Divine JEFFERSON Narrative: 24-year-old female past medical history significant for ADHD, anxiety, bipolar disorder, depression, autism spectrum disorder presents for evaluation of a rash. patient describes an itchy rash in her groin that she noticed this afternoon. she describes the skin as leathery. she reports that her boyfriend has had a similar rash for several years the patient is not concerned about sexually transmitted infection because I am the only partner he has ever had. Patient denies any vaginal bleeding or discharge. Denies any burning with urination denies any new soaps, lotions, detergents Related Data Home Medications ?Medication ?Instructions ?Recorded ?Confirmed hydroxyzine HCl 25 mg tablet 25 mg PO BEDTIME PRN anxiety 09/23/23 09/23/23 Previous Rx's ?Medication ?Instructions ?Recorded escitalopram oxalate 10 mg tablet 5 mg (1/2 x 10 mg) PO DAILY 30 09/29/23 days #15 tabs risperidone 0.5 mg tablet 0.5 mg PO DAILY 30 days #30 tabs 09/29/23 risperidone 1 mg tablet 1 mg PO BEDTIME 30 days #30 tabs 09/29/23 hydrocortisone 2.5 % topical cream 1 appl topical BID rash 1 week #30 10/01/24 grams Allergies Allergy/AdvReac Type Severity Reaction Status Date / Time amoxicillin Allergy Rash Verified 09/30/24 23:34 goat milk Allergy Hives Uncoded 09/30/24 23:34 Review of Systems Constitutional: Constitutional: Denies body ache(s), Denies chills, Denies fever(s) and Denies frequent falls Eyes: Eyes: Denies blurry vision Cardiovascular: Cardiovascular: Denies chest pain and Denies dyspnea Respiratory: Respiratory: Denies cough and Denies dyspnea Gastrointestinal: Gastrointestinal: Denies abdominal pain, Denies nausea and Denies vomiting Musculoskeletal: Musculoskeletal: Denies back pain Integumentary/Breasts: Skin/Breast: Reports rash Neurologic: Denies frequent falls PMFSH Past Medical History Medical History Autism Depression Bipolar disorder Anxiety ADHD Social History Social History Household Members: Family Housing: Apartment Do you presently have visiting nurse or other home services: No Alcohol intake: unknown Patient Tobacco Use Status: Never used Tobacco Advance Directives: No Advance Directives Information Provided: Yes Do you have a plan to hurt others: No Plan service: No Sexual orientation: Don't Know Physical Exam Vital Signs: Vital Signs: Last Vital Signs Temp 98.2 F 09/30/24 23:31 Pulse 91 09/30/24 23:31 Resp 16 09/30/24 23:31 BP 115/71 09/30/24 23:31 Pulse Ox 98 09/30/24 23:31 O2 Del Method Room Air 09/30/24 23:31 BMI result Body Mass Index 42.0 Const: General: healthy appearing, comfortable, no acute distress, alert and awake Nutritional Appearance: well nourished Orientation/consciousness: patient oriented x3 HEENT: Head: Yes normocephalic and Yes atraumatic Eyes: Eyelids: Yes eyelids normal Conjunctivae: conjunctivae normal Sclerae: sclerae normal Corneas: corneas normal Pupils: Equal, round and reactive pupils present EOM: EOMs intact bilaterally Neck: Neck: Yes full ROM Resp: Effort & Inspection: normal respiratory effort, able to speak in complete sentences and not labored : Other: There is very mild erythem with dry skin to the groin bilaterally. This is lateral to the labial folds. No obvious vaginal discharge or abscess. Skin: General skin exam: elasticity normal Neuro: General: patient oriented x3 Cranial nerves: Yes Equal, round and reactive pupils present and Yes Bilaterally intact EOM present Cognition (Neuro): normal cognition Medical Decision Making Medical Decision Making MDM Narrative: rash to her groin. This is most consistent with a mild dry skin or inflammat ory condition. There was no evidence of blistering, warts. There was no vaginal discharge. Offered STI testing which the patient declined. A low potency steroid, hydrocortisone. she was advised to use unscented detergents, lotions, soaps Differential Diagnosis Differential Diagnoses: The differential diagnosis associated with the pr esentation includes Dermatitis Cellulitis eczema candidiasis Discharge Plan Discharge Clinical Impression: Dermatitis Patient Disposition: Home, Self-Care Instructions: Dermatitis (ED) Additional Instructions: You appear to have a mild inflammatory dermatitis. You may use hydrocortisone twice daily for one week. tried to use unscented lotions, detergents, as these can be irritating to skin. follow-up with your primary doctor, return for new or worsening symptoms Prescriptions: New hydrocortisone 2.5 % cream 1 appl topical BID 7 Days Qty: 30 0RF No Action hydroxyzine HCl 25 mg tablet 25 mg PO BEDTIME PRN (Reason: anxiety) risperidone 1 mg Tablet 1 mg PO BEDTIME 30 Days Qty: 30 0RF risperidone 0.5 mg Tablet 0.5 mg PO DAILY 30 Days Qty: 30 0RF escitalopram oxalate 10 mg tablet 5 mg PO DAILY 30 Days Qty: 15 0RF Stand Alone Forms: Work/School Release Print Language: Belarusian
[2024-10-01 00:10] VITALS: BP 115/71; PULSE 91; RESP 16; TEMP 36.8; O2SAT 98
== END 2024-10-01 00:14 | disposition home or self-care (01) ==
PROVIDERS: Emergency Provider Internal Medicine; PCP Internal Medicine
DX: N93.9 Abnormal uterine and vaginal bleeding, unspecified (principal); L30.8 Other specified dermatitis; Z79.899 Other long term (current) drug therapy
CPT/HCPCS: 99283

== ENCOUNTER 2025-04-12 10:34 | Outpatient (REF) | payer SELFPAY ==
--- NOTE | 2025-04-12 10:36 | EMG_ITS ---
Chief complaint: Had bilateral hand numbness for 1 month in November, now resolved. Affecting mostly the 3rd-5th digits at that time. Reason for referral: Evaluate for ulnar neuropathy Referred by: Spencer DUPREE Procedure done: Bilateral upper extremities NCS/EMG Precautions and/or limitations: None The limb temperature was monitored continuously and remained between 32-36 degrees C during the performance of the NCS. Nerve Conduction Studies Anti Sensory Summary Table ?Stim Site NR Onset (ms) Norm Onset (ms) Peak (ms) Norm Peak (ms) O-P Amp (?V) Norm O-P Amp Site1 Site2 Delta-0 (ms) Dist (cm) Stanely (m/s) Norm Stanley (m/s) Left Median Anti Sensory (2nd Digit) Wrist ? 2.2 2.8 <3.6 72.8 >10 Wrist 2nd Digit 2.2 14.0 64 Right Median Anti Sensory (2nd Digit) Wrist ? 2.3 2.9 <3.6 72.3 >10 Wrist 2nd Digit 2.3 14.0 61 Right Radial Anti Sensory (Thumb) Forearm ? 1.4 1.9 <3.1 37.7 Forearm Thumb 1.4 0.0 Left Ulnar Anti Sensory (5th Digit) Wrist ? 2.1 2.8 <3.7 21.6 >15.0 Wrist 5th Digit 2.1 14.0 67 Right Ulnar Anti Sensory (5th Digit) Wrist ? 2.1 2.8 <3.7 19.9 >15.0 Wrist 5th Digit 2.1 14.0 67 Motor Summary Table ?Stim Site NR Onset (ms) Norm Onset (ms) O-P Amp (mV) Norm O-P Amp iAmp (mV) Amp (1st) (%) Site1 Site2 Delta-0 (ms) Dist (cm) Stanley (m/s) Norm Stanley (m/s) Left Median Motor (Abd Poll Brev) Wrist ? 3.3 <3.9 6.2 >4.5 6.4 100.0 Elbow Wrist 3.6 20.0 56 >45 Elbow ? 6.9 3.9 4.1 62.9 Right Median Motor (Abd Poll Brev) Wrist ? 3.2 <3.9 4.5 >4.5 4.9 100.0 Elbow Wrist 3.5 19.5 56 >45 Elbow ? 6.7 2.9 3.2 64.4 Left Ulnar Motor (Abd Dig Minimi) Wrist ? 2.3 <3.0 8.7 >5 10.0 100.0 B Elbow Wrist 2.9 18.0 62 >45 B Elbow ? 5.2 7.9 9.2 90.8 A Elbow B Elbow 1.3 10.0 77 >45 A Elbow ? 6.5 8.4 9.8 96.6 Right Ulnar Motor (Abd Dig Minimi) Wrist ? 2.3 <3.0 8.0 >5 8.2 100.0 B Elbow Wrist 2.9 19.0 66 >45 B Elbow ? 5.2 7.1 7.4 88.8 A Elbow B Elbow 1.1 10.0 91 >45 A Elbow ? 6.3 7.5 7.9 93.8 EMG ?Side Muscle Nerve Root Ins Act Fibs Psw Amp Dur Poly Recrt Int Pat Comment Right 1stDorInt Ulnar C8-T1 Nml Nml Nml Nml Nml 0 Nml Complete Right FlexCarRad Median C6-7 Nml Nml Nml Nml Nml 0 Nml Complete Right FlexCarpiUln Ulnar C8,T1 Nml Nml Nml Nml Nml 0 Nml Complete Right Biceps Musculocut C5-6 Nml Nml Nml Nml Nml 0 Nml Complete Right Triceps Radial C6-7-8 Nml Nml Nml Nml Nml 0 Nml Complete Right Deltoid Axillary C5-6 Nml Nml Nml Nml Nml 0 Nml Complete Left 1stDorInt Ulnar C8-T1 Nml Nml Nml Nml Nml 0 Nml Complete Left FlexCarRad Median C6-7 Nml Nml Nml Nml Nml 0 Nml Complete Left FlexCarpiUln Ulnar C8,T1 Nml Nml Nml Nml Nml 0 Nml Complete Left Biceps Musculocut C5-6 Nml Nml Nml Nml Nml 0 Nml Complete Left Triceps Radial C6-7-8 Nml Nml Nml Nml Nml 0 Nml Complete Left Deltoid Axillary C5-6 Nml Nml Nml Nml Nml 0 Nml Complete FINDINGS: All motor and sensory nerves tested showed normal latencies, amplitudes and conduction velocities. Concentric needle EMG was performed in selected muscles of the bilateral upper extremities. Study did not reveal signs of electric abnormalities as shown in the table above. IMPRESSION: 1. This is a normal study. 2. There is no electrodiagnostic evidence for median neuropathy, ulnar neuropathy, brachial plexopathy, or cervical radiculopathy. Thank you for your kind referral. Luba Abdul MD, JONNY Board Certified, [place] [employer] and [employer] (ABPMR) Board Certified, [place] Board [employer] Electrodiagnostic [employer] (ABEM) CODIN [phone], 2 extremities MTDD
== END 2025-04-12 10:35 | disposition home or self-care (01) ==
LOC: HO.NEURO 10:34
PROVIDERS: PCP Internal Medicine
DX: R20.0 Anesthesia of skin (principal); R20.2 Paresthesia of skin
CPT/HCPCS: 95886; 95911

== ENCOUNTER → 2025-04-12 10:36 | Outpatient (BNV) | payer OTHER, SELFPAY | PROVIDERS: PCP Internal Medicine; Visit Provider Physical Medicine & Rehabilitation | DX: R20.2 Paresthesia of skin (principal) | CPT/HCPCS: 95886; 95911 ==

== ENCOUNTER 2025-05-05 14:50 | Outpatient (AMB) | payer OTHER, SELFPAY ==
[2025-05-05 14:51] VITALS: BMI 46.3
--- NOTE | 2025-05-05 14:51 | A.OFFVIS_ITS ---
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 Patient reports that she is experiencing an electric sensation from the left el bow to the finger tips, feels like she hit her funny bone. 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 She also works for [employer] all day . She denies any numbness, tingling, finger locking today. She feels like her symptoms have subsided. EMG Done 04/12/25: IMPRESSION: 1. This is a normal study. 2. There is no electrodiagnostic evidence for median neuropathy, ulnar neuropathy, brachial plexopathy, or cervical radiculopathy. 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 Patient reports that she is experiencing an electric sensation from the left elbow to the finger tips, feels like she hit her funny bone. Patient states that this symptoms occurred for a proximally one-week after using a power hammer while working with sheet metal. Patient reports that symptoms have completely resolved, and have not recurred since this time. She also works for [employer] all day . She denies any numbness, tingling, finger locking today. She feels like her symptoms have subsided. EMG Done 04/12/25: IMPRESSION: 1. This is a normal study. 2. There is no electrodiagnostic evidence for median neuropathy, ulnar neuropathy, brachial plexopathy, or cervical radiculopathy. 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 Good APB muscle firing and good finger cross. Vascular: Capillary refill brisk. ROM: Patient can make a fist and extend all their digits. Skin: No lacerations or abrasions noted. General: No ecchymosis. No erythema or evidence of infection. Assessment & Plan Assessment & Plan (1) Numbness and tingling in both hands: Code(s): R20.0 - Anesthesia of skin; R20.2 - Paresthesia of skin Category: Medical Plan 1. Numbness and tingling of both hands Symptoms have resolved since EMG Patient is educated about this condition Patient is educated about the typical recovery course No acute intervention indicated, as symptoms have resolved any EMG is negative Patient is educated that if symptoms recur, she should call us for repeat evaluation Patient understands this and is amenable to this plan Follow-up as needed with any acute concerns Medications: Discontinued escitalopram oxalate Discontinued Reason: Patient Completed Course 5 mg (1/2 x 10 mg) PO DAILY 30 days 15 tabs 0RF risperidone Discontinued Reason: Patient Completed Course 0.5 mg PO DAILY 30 days 30 tabs 0RF risperidone Discontinued Reason: Patient Completed Course 1 mg PO BEDTIME 30 days 30 tabs 0RF Coding Level of Care Code New Pt Level 3 (17228) Diagnoses Numbness and tingling in both hands R20.0; R20.2
--- OUTSIDE RECORDS SUMMARY | 2025-05-05 22:20 | XMS_ITS | Clinical Summary ---
Author Organization [facility] Address [address] [place] [phone] Phone Care Team Providers Care Lithopone Charger Name Role Phone Oziel Duenas MD Primary Care Provider Allergies Active Allergy Reactions Criticality Noted Date Comments Amoxicillin Rash Low 05/21/2022 [place] Goat Milk 12/10/2017 Milk 08/03/2019 Goats milk, not cows milk Mosquito Allergenic Extract 12/11/19 18 Other 05/23/2022 goats milk mosquito bites Medications cariprazine HCl (VRAYLAR ORAL) Take 1.5 mg by mouth every morning. Active dextroamphetamine-a mphetamine (ADDERALL) 15 mg Tab tablet Take 15 mg by mouth daily. Active escitalopram oxalate (LEXAPRO) 20 MG tablet Take 20 mg by mouth daily. Active norethindrone-ethin yl estradiol (NECON) 0.5-0.035 mg per tablet Take 1 tablet by mouth daily. Active omeprazole (PRILOSEC) 20 MG capsule Take 20 mg by mouth daily. Active ondansetron (ZOFRAN ODT) 8 MG disintegrating tablet Take 8 mg by mouth every 12 (twelve) hours as needed for nausea. Active ondansetron (ZOFRAN-ODT) 4 MG disintegrating tablet Take 1 tablet (4 mg total) by mouth every 8 (eight) hours as needed for nausea. 10 tablet 1 Active meclizine (ANTIVERT) 25 mg tablet Take 1 tablet (25 mg total) by mouth 3 (three) times a day as needed for dizziness. 15 tablet 2 Active Active Problems No known active problems Social History Tobacco Use Types Packs/Day Years Used Date Smoking Tobacco: Never Smokeless Tobacco: Never Alcohol Use Standard Drinks/Week Comments Never 0 (1 standard drink = 0.6 oz pur e alcohol) Education Answer Date Recorded Are you interested in more education? Not on dominique e 10/17/2022 Are you concerned about learning? Not on file 10/17/2022 No 10/17/2022 No 10/17/2022 Digital Access Answer Date Recorded No 11/18/2022 No 11/18/2022 Reliable internet access at home? Not on file 11/18/2022 Device with a working camera? Not on file Comments Unknown Sex and Gender Information Value Date Recorded Sex Assigned at Female 08/03/2019 4:22 PM EST Legal Sex Female 4:06 PM EST Gender Identity Female 08/03/2019 4:22 PM EST Sexual Orientation Straight 09/19/2020 8: 29 AM EDT Last Filed Vital Signs Vital Sign Reading Time Taken Comments Blood Pressure 119/66 05/24/2022 3:08 PM EST Pulse 78 05/24/2022 3:08 PM EST Temperature 37 C (98.6 F) 05/24/2022 3:08 PM EST Respiratory Rate 18 05/24/2022 3:08 PM EST Oxygen Saturation 98% 05/24/2022 3:08 PM EST Inhaled Oxygen Concentration - - Weight 98.4 kg (217 lb) 05/24/2022 12:06 PM EST Height 162.6 cm (5' 4 ) 05/24/2022 12:06 PM EST Body Mass Index 37.25 05/24/2022 12:06 PM EST Plan of Treatment Not on file Medical Devices Not on file Insurance [facility] [place] [address] [place] [address] [employer] [place] [address] [place] [address] [employer] [place] [address] [place] [address] [employer] [facility] [employer] [facility] [employer] [facility] Care Teams Lithopone Charger Relationship Specialty Start Date End Date Oziel Duenas MD [address] [place] [address] PCP - General Hospitalist 05/24/22 Additional Source Comments The information contained in this document represents components of the legal health record. It is not the complete legal health record.[facility]
--- OUTSIDE RECORDS SUMMARY | 2025-05-05 22:20 | XMS_ITS | Encounter Summary ---
Author Organization [facility] Address [address] [place] [phone] Phone Care Team Providers Care Beef Cattle Grazier Name Role Phone Pcp, Unknown Primary Care Provider Unavailabl e Unknown, Unknown Primary Care Provider Soraya bingham Pcp, Unknown Primary Care Provider Unavailabl e Oziel Duenas MD Primary Care Provider Encounter Details Date Type Department Care Team (Late st Contact Info) Description 09/27/2021 Procedure Pass [facility], Ct Scan - [address] [address] Social History Tobacco Use Types Packs/Day Years Used Date Smoking Tobacco: Never Smokeless Tobacco: Never Alcohol Use Standard Drinks/Week Comments Never 0 (1 standard drink = 0.6 oz pur e alcohol) Comments Unknown Sex and Gender Information Value Date Recorded Sex Assigned at Female 08/03/2019 4:22 PM EST Legal Sex Female 4:06 PM EST Gender Identity Female 08/03/2019 4:22 PM EST Sexual Orientation Straight 09/19/2020 8: 29 AM EDT documented as of this encounter Plan of Treatment Not on file documented as of this encounter Visit Diagnoses Not on filedocumented in this encounter Additional Health Concerns Infection Onset Date Last Indicated Resolved Time CoV-Risk 02/07/2022 02/07/2022 02/18/2022 1:22 AM EDT documented as of this encounter Care Teams Beef Cattle Grazier Relationship Specialty Start Date End Date Pcp, Unknown PCP - General 09/26/21 10/09/21 Unknown, Unknown, PCP - General 10/10/21 05/22/22 Pcp, Unknown PCP - General 05/23/22 05/23/22 Oziel Duenas MD [address] [place] [id number] PCP - General Hospitalist 05/24/22 documented as of this encounter Additional Source Comments The information contained in this document represents components of the legal health record. It is not the complete legal health record.[facility]
--- OUTSIDE RECORDS SUMMARY | 2025-05-05 22:21 | XMS_ITS | Encounter Summary ---
Author Organization [facility] Address [address] [place] [phone] Phone Care Team Providers Care Paperhanger Pipe Name Role Phone Pcp, Unknown Primary Care Provider Oziel Vasquez MD Primary Care Provider Encounter Details Date Type Department Care Team (Late st Contact Info) Description 05/23/2022 Procedure Pass [facility], Ct Scan - [address] [address] Social History Tobacco Use Types Packs/Day Years [...] AM EDT documented as of this encounter Functional Status * Calculated C-SSRS Risk Score (Lifetime/Recent) Answer Date of Assessment Author No Risk Indicated 05/24/2022 12:09 PM Genie Brandt RN * [place] Suicide Severity Rating Scale (Screener/Recent Self-Report) Question Answer Date of Assessment Author 1. Wish to be (Past 1 Month) No 022 12:09 PM Genie Escamilla RN 2. Non-Specific Active Suici garth Thoughts (Past 1 Month) No 05/24/2022 12:09 PM Emma Escamilla RN 6. Suicidal Behavior (Lifetime) No 2 12:09 PM Genie Escamilla RN documented as of this encounter Plan of Treatment Not on file documented as of this encounter Visit Diagnoses Not on filedocumented in this encounter Care Teams Paperhanger Pipe Relationship Specialty Start Date End Date Pcp, Unknown PCP - General 05/23/22 05/23/22 Oziel Duenas MD [address] [place] [phone] PCP - General Hospitalist 05/24/22 documented as of this encounter Additional Source Comments The information contained in this document represents components of the legal health record. It is not the complete legal health record.[facility]
--- OUTSIDE RECORDS SUMMARY | 2025-05-05 22:21 | XMS_ITS | Clinical Summary ---
Author Organization [facility] Address [address] [place] [address] Care Team Providers Care Assessment Analyst Name Role Phone Oziel Duenas MD Primary Care Provider Allergies Active Allergy Reactions Criticality Noted Date Comments Amoxicillin Rash Low 05/21/2022 [place] Goat Milk 12/10/2017 Goat milk Mosquito Allergenic Extract 12/11/19 18 Medications amphetamine-dextro amphetamine XR (ADDERALL XR) 15 mg 24 hr capsule Take 1 Cap by mouth every morning. 12/11/19 18 Active docusate sodium (COLACE) 100 mg capsule Take 1 Capsule by mouth 2 times daily as needed for Constipation. 12/11/19 24 Active escitalopram (LEXAPRO) 10 mg tablet Take 1 Tablet by mouth daily. Active hydrOXYzine HCL (ATARAX) 25 mg tablet Take 1 Tablet by mouth at bedtime as needed for Anxiety (insomnia). 09/21/19 24 Active cariprazine (Vraylar) 1.5 mg capsule Take 1 Cap by mouth daily. 07/10/19 21 Active polyethylene glycol (Miralax) 17 gram/dose oral powder Take 17 g by mouth daily. 12/11/19 24 Active desogestreL-ethiny l estradioL (Apri) 0.15-0.03 mg per tablet Take 1 tablet by mouth 1 (one) time each day. 84 tablet 4 05/31/20 24 025 Active risperiDONE (RisperDAL) 1 mg tablet Take 1 tablet (1 mg total) by mouth. at bedtime. 09/29/19 24 Active ondansetron ODT (ZOFRAN-ODT) 4 mg disintegrating tablet Take 1 tablet (4 mg total) by mouth every 8 hours as needed. 09/20/19 21 Active norethindrone-ethi nyl estradiol (NECON) 0.5-35 mg-mcg per tablet Take 1 tablet by mouth daily. Active nitrofurantoin, macrocrystal-monoh ydrate, (MACROBID) 100 mg capsule Take 1 capsule (100 mg total) by mouth 2 (two) times a day. 7 days 03/16/20 24 Active meclizine (ANTIVERT) 25 mg tablet Take 1 tablet (25 mg total) by mouth 3 times daily as needed. 05/24/20 22 Active lamoTRIgine (LaMICtal) 25 mg tablet Take 1 tablet (25 mg total) by mouth 1 (one) time each day. 07/22/19 24 Active hydrocortisone (ANUSOL-HC) 2.5 % rectal cream USE 1 APPLICATION RECTALLY TWICE A DAY NEEDED FOR RECTAL PAIN 12/08/19 24 Active doxycycline hyclate (VIBRA-TABS) 100 mg tablet Take 1 tablet (100 mg total) by mouth 2 (two) times a day. for 7 days 11/23/19 24 Active buPROPion XL (WELLBUTRIN XL) 150 mg 24 hr tablet Take 1 tablet (150 mg total) by mouth 1 (one) time each day in the morning. 05/24/20 24 Active omeprazole (PriLOSEC) [address] capsule Take 1 capsule (20 mg total) by mouth 1 (one) time each day. Do not crush or chew. 90 capsule 1 10/07/19 25 Active Active Problems Problem Noted Date Diagnosed Date Speech delay 05/31/2024 Chlamydia 11/24/2023 Attention deficit hyperactivity disorder (ADHD) 10/29/2023 Gastroesophageal reflux disease without esophagi tis 10/29/2023 Abnormal echocardiogram 08/06/2022 Overview (05/02/2024): Last Assessment & Plan: I reviewed echo myself and right ventricle could be mildly enlarged. This could be related to obesity. Giving her frequent complaints, will arrange a limited echo with agitated saline study to make sure there is no [id number] shunt. Dizziness 08/06/2022 Overview (05/02/2024): Last Assessment & Plan: The symptoms most likely caused by very strenuous exercise or heavy lifting. She is likely doing breath-holding and bear down with heavy lifting which will reduce blood return to the right atrium. I suggest her to avoid lifting heavy stuff. Also suggest her to reduce exercise intensity. She suggest to drink more fluids and avoid too much caffeinated beverage. Palpitations 08/04/2022 Disoriented 12/07/2020 Overview (05/02/2024): February 08, 2021 the patient [facility]. Considering the possibility of a transient seizure. Plans for an EEG and follow-up 3 weeks later. Snoring 08/22/2019 Overview (05/02/2024): 07/2019 Home Sleep Study did not reveal sleep apnea or nocturnal hypoxia. Acne 11/24/2017 Overview (05/02/2024): DX:Acne; COMMENT: 09/18/14 mild acne in upper forehead, nasolabial folds and chin regions. Trial of Clinda gel 09/18/14 mild acne in upper forehead, nasolabial folds and chin regions. Trial of Clinda gel Major depressive disorder 11/24/2017 Overview (05/02/2024): 01/20/19- lexapro 20mg, latuda 40mg, oustide provider 05/03/14 - Complicated depression with recurrent SI. Ccrisis had been called to the school. Did [address] [facility]. 09/18/14 had IHT. Stable on Lexapro 15 mg, Seroquel 50 mg HS. Follow up with therapist and Psych. Aware of Crisis info. Denies any active SI ( past issue) Eczema 11/24/2017 Overview (05/02/2024): 07/20/14 preventative/maitenance treatment with BID emollients (Eucerin). Acute treatment with steroids BID x 10 days Vasovagal symptom 11/24/2017 Overview (05/02/2024): 2013, 2014 normal EKG 2012 normal structure of heart on Echo, saw Dr Quinteros, [facility] cardio, vasovagal episode, no concerns Immunizations Immunization Administration Dates Next Due DTaP (Infanrix) 6wks to less than 7yo ,05/10/2003,06/30/2002,03/09,01/17/2002 WLwN-BJE-UCA (Pentacel) 2mo to less than 5yo 05/10/2003,06/30/2002,03/09/2002,01/17 H1N1 Inj Preservative Free 07/26/2009,06/01/2009 HPV, Quadrivalent 05/03/2014,08/16/2013,11/19/19 13 Hepatitis B Pediatric (Enger ix B; Recombivax HB) to less than 20 yo 03/09/2002,2001,2001 IPV Inactivated polio (Ipol) 6wks and older 09/17/2005,06/30/2002,03/09/2002,01/17 Influenza trivalent, 0.5mL, preservative free (Fluarix; FluLaval; Fluzone) ages 6mo and older (Afluria) 3 years and older 07/18/2020,07/28/2018,10/17/2015,05/03,08/12/2012,03/12/2011 Influenza, live, intranasal, trivalent (FluMist) 2yo to less than 50yo 05/21/2007 MMR, measles mumps and rubel la Live (Priorix; M-M-R II) 12mo and older 09/17/2005,08/30/2002 Meningococcal MCV4P 12/10/2017,08/12/2012 Buy buy tea SARS-CoV-2 COVID-19, mRNA, LNP-S, preservative free 02/20/2021,11/13/2020,10/23/2020 Pneumococcal conjugate 13 va lent (Prevnar 13, PCV13) 2mo and older 05/10/2003,06/30/2002,03/09/2002,01/17 Td Tetanus diptheria, preser vative free (Tenivac) 7yo and older 10/06/2024 Tdap Tetanus diptheria acell ular pertussis (Boostrix; Adacel) 7yo and older 08/12/2012 Varicella live (Varivax) 12m o and older 12/10/2017,09/23/2006,09/05/2002 Surgical History Surgery Date Site/Laterality Comments OTHER SURGICAL HISTORY PROCEDURE: DENIES PREVIOUS SURGERY Medical History Medical History Date Comments Acne 11/24/2017 DX:Acne; COMMENT : 09/18/14 mild acne in upper forehead, nasolabial folds and chin regions. Trial of Clinda gel Depression 11/24/2017 DX:Depression; C OMMENT: 05/03/14 - Complicated depression with recurrent SI. Ccrisis had been called to the school. Did [address] [facility]. 09/18/14 had IHT. Stable on Lexapro 15 mg, Seroquel 50 mg HS. Follow up with therapist and Psych. Aware of Crisis info. Denies any active SI ( past issue) Eczema 11/24/2017 DX:Eczema; COMME NT: 07/20/14 preventative/maitenance treatment with BID emollients (Eucerin). Acute treatment with steroids BID x 10 days Vasovagal near-syncope 11/24/2017 DX:Vasova gal near-syncope; COMMENT: No additional details available in transfer records Bipolar disorder ([facility] V2 4, [facility] V28) DX:Bipolar disorder ([facility]) Adhd DX:ADHD Autism DX:Autism Family History Medical History Relation Name Comments Thyroid disease Aunt Mental illness Father Ovarian cancer Maternal Grandmother ? [place] ismae Thyroid disease Maternal Grandmother Cervical cancer Mother Coronary artery disease Mother Breast cancer Other Great grandmot her, maternal Relation Name Status Comments Aunt Father Alive Maternal Grandfather Maternal Grandmother Mother Alive Other Sister Alive Social History Tobacco Use Types Packs/Day Years Used Date Smoking Tobacco: Never Smokeless Tobacco: Never Tobacco Cessation:Counseling Given: Not Answered Alcohol Use Standard Drinks/Week Comments Yes 0 (1 standard drink = 0.6 oz pur e alcohol) Comments No Sex and Gender Information Value Date Recorded Sex Assigned at Not on file Legal Sex Female 1:00 PM EDT Gender Identity Not on file Sexual Orientation Not on file Obstetrics History Last Filed Vital Signs Vital Sign Reading Time Taken Comments Blood Pressure 127/82 10/06/2024 8:32 AM EDT Pulse 88 10/06/2024 8:32 AM EDT Temperature 36.8 C (98.3 F) 10/06/2024 8:32 AM EDT Respiratory Rate 18 10/06/2024 8:32 AM EDT Oxygen Saturation - - Inhaled Oxygen Concentration - - Weight 114 kg (251 lb) 10/06/2024 8:32 AM EDT Height 162.6 cm (5' 4 ) 10/06/2024 8:32 AM EDT Body Mass Index 43.08 10/06/2024 8:32 AM EDT Plan of Treatment Health Maintenance Due Date Last Done Comments Meningococcal B Vaccine (1 of 2 - Standard) 2017 Social Influencers of Health Screening 02/12/2022 Depression Screening 06/22/2024 03/16/2024 Gonorrhea/Chlamydia Screening 01/24/2025 01/25/2024 COVID-19 Vaccine ( season) 2025 06/18/2021, 02/20/2021, 11/13/2020, Additional history exists Influenza Vaccine (#1) 2025 , 07/18/2020, 07/28/2018, Additional history exists Cholesterol Screening (Lipid Panel) 01/13/2027 01/13/2022 Cervical Cancer Screening: Pap Smear 01/24/2027 01/25/2024, 01/25/2024, 01/25/2024 DTaP,Tdap,and Td Vaccines (8 - Td or Tdap) 10/06/2034 10/06/2024, 08/12/2012, 09/17/2005, Additional history exists RSV Immunization Adult Patients (1 - 1-dose 75+ series) 2076 HIB Vaccines Completed 05/10/2003, 04/22, 06/30/2002, Additional history exists Hepatitis B Vaccines Completed 05/10/2003, 06/30/2002, 03/09/2002, Additional history exists Pneumococcal Vaccine: Pediatrics (0 to 5 Years) and At-Risk Patients (6 to 49 Years) Completed 05/10/2003, 06/30/2002, 03/09/2002, Additional history exists IPV Vaccines Completed 09/17/2005, 04/22, 06/30/2002, Additional history exists MMR Vaccines Completed 09/17/2005, 08/30/2002 HPV Vaccines Completed 05/03/2014, 0210/2013, 11/18/2012 Meningococcal ACWY Vaccine Completed 12/10/2017, Varicella Vaccines Completed 12/10/2017, 0 09/23/2006, 09/05/2002 HIV Screening Completed 05/21/2022 Hepatitis C Screening Completed 05/21/2022 Hepatitis A Vaccines Aged Out No long er eligible based on patient's age to complete this topic RSV Immunization Patients Under 20 months Aged Out No longer eligible based on patient's age to complete this topic Procedures Procedure Name Priority Date/Time Associated Diagnosis Comments DEPRESSION SCREENING Routine 03/16/2024 HM HPV Routine 01/25/2024 GONORRHEA/CHLAMYDIA SCRREENING Routine 01/25/2024 HEPATITIS C SCREENING Routine 05/21/2022 HIV SCREENING Routine 05/21/2022 LIPID PANEL Routine 01/13/2022 from Last 3 Months or Most Recently Relevant to Health Maintenance Results * Depression Screening (03/16/2024) Pathologist [facility] Depression Screening Abstracted [facility] Provider HEALTH MAINTENANCE Final Result * Cervical Cancer Screening: HPV (01/25/2024) [facility] Cervical Cancer Screening: HPV Abstracted, no interpretation [facility] Provider HEALTH MAINTENANCE Final Result * Gonorrhea/Chlamydia Screening (01/25/2024) [facility] Gonorrhea/Chla mydia Screening Abstracted Result [facility] Provider HEALTH MAINTENANCE Final Result * HIV Screening (05/21/2022) [facility] HIV Screening Abstracted Result [facility] Provider HEALTH MAINTENANCE Final Result * Hepatitis C Screening (05/21/2022) [facility] Hepatitis C Screening Abstracted us Historical Provider HEALTH MAINTENANCE Final Result * Lipid panel (01/13/2022) LDL/HDL Ratio 3 0 - 4 Triglycerides 123 0 - 150 mg/dL Cholesterol 151 0 - 200 mg/dL HDL 57 >=40 mg/dL LDL Cholesterol 70 0 - 100 mg/dL Blood Venous blood specimen / Unknown Historical Provider LAB BLOOD ORDERABLES Nancy l Result from Last 3 Months or Most Recently Relevant to Health Maintenance Insurance , [address] [place], [place] [id number] [place] [address] [place] [address] Care Teams Assessment Analyst Relationship Specialty Start Date End Date Oziel Duenas MD [address] [place] [address] PCP - General Internal Medicine 10/04/21
--- OUTSIDE RECORDS SUMMARY | 2025-05-05 22:22 | XMS_ITS ---
Author Name [facility] Organization Unknown Care Team Organization Name Specialty Phone Email Start Date End Da te [facility] Oziel Duenas Primary Care 12/25/202201/20 [facility] Oziel Duenas Primary Care 08/27/202201/20 [facility] Shani Solorzano Primary Care 04/29/20222023
== END 2025-05-05 15:05 | disposition home or self-care (01) ==
LOC: HO.HOS 14:50
PROVIDERS: PCP Internal Medicine
DX: R20.0 Anesthesia of skin (principal); R20.2 Paresthesia of skin
CPT/HCPCS: 99203

== ENCOUNTER → 2025-05-05 14:50 | Outpatient (BNVA) | payer OTHER, SELFPAY | PROVIDERS: PCP Internal Medicine | DX: Z71.2 Person consulting for explanation of examination or test findings (principal); R20.0 Anesthesia of skin; R20.2 Paresthesia of skin | CPT/HCPCS: 99202 ==